=== PATIENT | male | born 1950 | race Caucasian/White ===

== ENCOUNTER 2020-12-02 08:49 | Outpatient (CLI) | payer MEDICARE, OTHER ==
[2020-12-02 10:09] LABS: Hemoglobin 14.7 g/dL (13.5-17.5); Mean Corpuscular Hemoglobin 30.6 pg (27.0-33.0); Mean Corpuscular Volume 89.8 fl (81.2-95.1); Mean Platelet Volume 10.2 fl (7.4-10.4); Platelet Count 253 10x3/uL (150-450); RBC Distribution Width 12.8 % (11.5-14.5); Red Blood Cell (RBC) Count 4.81 10x6/uL (4.32-5.72); White Blood Cell (WBC) Count 5.1 10x3/uL (3.5-10.5)
[2020-12-02 10:29] LABS: Anion Gap 13 mmol/L (10-20); BUN (Urea Nitrogen) 21 mg/dL (8.4-25.7); Calc. Creatinine Clearance 0 mL/min (70-130); Calcium 9.5 mg/dL (7.8-10.44); Carbon Dioxide 21 mmol/L (23-31); Chloride 108 mmol/L (98-107); Glucose 93 mg/dL (80-115); Potassium 4.2 mmol/L (3.5-5.1); Sodium 138 mmol/L (136-145)
[2020-12-02 10:33] LABS: Prothrombin Time 10.9 sec (9.5-12.1)
[2020-12-03 01:05] LABS: SARS-CoV-2 PCR by NAA Not Detected (NotDetected)
== END 2020-12-02 08:50 | disposition home or self-care (01) ==
LOC: LABBT 08:49
PROVIDERS: ATTEND Internal Medicine Cardiovascular Disease
DX: Z01.812 Encounter for preprocedural laboratory examination (principal); I47.1 Supraventricular tachycardia; Z20.822 Contact with and (suspected) exposure to COVID-19
CPT/HCPCS: 80048; 85027; 85610; U0003; U0005

== ENCOUNTER → 2020-12-07 | Day surgery (SDC) | payer MEDICARE, OTHER ==
[2020-12-03 13:17] VITALS: BMI 25.8
[~2020-12-07] MED LIST: Fentanyl 100 MCG/2 ML VIAL ONE; Heparin 10,000 UNITS/ 10 ML VIAL ONE; Heparin 25,000 units/D5W 0 ML ONE; Lidocaine 1% (PF) 30 ML VIAL ONE; Lidocaine 1% PF 5 ML VIAL ONE; Milrinone 10 MG/10 ML VIAL ONE; PROPOFOL 200 MG/20 ML VIAL ONE; Propofol 500 MG/50 ML VIAL ONE; Sodium Chloride 0.9% (5 ML) NEB FS SCH; Sodium Chloride 0.9% 10 ML ONE
== END ==
LOC: CCL 06:24
PROVIDERS: ATTEND Internal Medicine Cardiovascular Disease
PROC: 02583ZZ Destruction of Conduction Mechanism, Percutaneous Approach (ICD-10-PCS; principal; 2020-12-07)
PROC: 02K83ZZ Map Conduction Mechanism, Percutaneous Approach (ICD-10-PCS; 2020-12-07)
PROC: 4A023FZ Measurement of Cardiac Rhythm, Percutaneous Approach (ICD-10-PCS; 2020-12-07)
PROC: 4A0234Z Measurement of Cardiac Electrical Activity, Percutaneous Approach (ICD-10-PCS; 2020-12-07)
DX: I47.1 Supraventricular tachycardia (principal); I48.3 Typical atrial flutter; E78.5 Hyperlipidemia, unspecified; K21.9 Gastro-esophageal reflux disease without esophagitis; G89.29 Other chronic pain; M54.9 Dorsalgia, unspecified; Z87.891 Personal history of nicotine dependence; Z79.01 Long term (current) use of anticoagulants; Z79.899 Other long term (current) drug therapy
CPT/HCPCS: 93005; 93613; 93621; 93653; A4218; C1730; C1894; C2630; J1644; J2001; J2260; J2704; J3010